=== PATIENT | female | born 1970 | race African-American/Black ===

== ENCOUNTER 2017-05-19 02:09 | Inpatient (IN) | payer SELFPAY ==
[~2017-05-19] VITALS: Ht 160 cm; Wt 89.2 kg
[2017-05-19] VITALS (26 sets, daily range): BP systolic 129–224; BP diastolic 72–134; PULSE 65–115; RESP 16–32; TEMP 97.9–98.6; O2SAT 94–99
[~2017-05-19 02:09] MED LIST: CHLO.12%30 SSP; CLIN1CAP5 PO; CLON-352 PO; CORE6.25 PO; FURO1TAB93 PO; LISI-360 PO; NAPR-576 PO; TRAM50 PO
[2017-05-19] MEDS ORDERED: CLON0.1T PO (02:36)
[2017-05-19] MEDS ORDERED: FURO40TA PO (02:36)
[2017-05-19] MEDS ORDERED: LISI10TA3 PO (02:36)
[2017-05-19] MEDS ORDERED: TRAM50TA PO (02:36)
[2017-05-19] MEDS ORDERED: CARV6.25 PO (02:36)
[2017-05-19] MEDS ORDERED: NITROGLYCERIN-D5W 50 MG/250 ML 250 ML IV ONE ×2 (02:45→06:15)
[2017-05-19] MEDS ORDERED: NITROGLYCERIN 0.4 MG SL 25 TABS/BTL SL ONE (02:45)
[2017-05-19 03:06] LABS: AUTOMATED NEUTROPHIL # 5.2 TH/MM3 (1.8-7.7); BASOPHIL # 0.1 TH/MM3 (0-0.2); BASOPHIL % 0.7 % (0.0-2.0); EOSINOPHIL # 0.2 TH/MM3 (0-0.4); HEMATOCRIT 39.8 % (35.0-46.0); HEMO FLAGS DIFF FINAL; LYMPH % 28.2 % (9.0-44.0); LYMPHOCYTE # 2.3 TH/MM3 (1.0-4.8); MEAN CELL VOLUME 87.8 FL (80.0-100.0); MEAN CORPUSCULAR HEMOGLOBIN 30.3 PG (27.0-34.0); MEAN CORPUSCULAR HGB CONC 34.5 % (32.0-36.0); MONO % 4.8 % (0.0-8.0); NEUT % 64.3 % (16.0-70.0); PLATELET COUNT 272 TH/MM3 (150-450); RED BLOOD COUNT 4.54 MIL/MM3 (4.00-5.30); RED CELL DISTRIBUTION WIDTH 14.5 % (11.6-17.2)
--- NOTE | 2017-05-19 03:07 | RADRPT ---
EXAM DATE/TIME: 05/19/2017 02:54 [facility] COMPARISON: No previous studies available for comparison. INDICATIONS : Short of breath. MEDICAL HISTORY : None. SURGICAL HISTORY : None. ENCOUNTER: Initial ACUITY: 1 day PAIN SCORE: 7/10 LOCATION: Bilateral chest FINDINGS: Perihilar and basilar parenchymal opacity may be edema. There is moderate enlargement of the cardiac silhouette. No significant effusion suspected. CONCLUSION: Cardiomegaly with fairly symmetric moderate probable edema. Tyler Kramer MD on May 19, 2017 at 3:02 Board Certified Radiologist. This report was verified electronically.
[2017-05-19 03:19] LABS: PROTHROMBIN TIME - PATIENT 10.4 SEC (9.8-11.6)
[2017-05-19 03:20] LABS: APTT (PATIENT) 23.2 SEC (24.3-30.1)
[2017-05-19 03:29] LABS: BICARBONATE 26.8 MEQ/L (21.0-32.0); MAGNESIUM 2.1 MG/DL (1.5-2.5)
[2017-05-19 03:31] LABS: POTASSIUM 4.7 MEQ/L (3.5-5.1)
[2017-05-19] MEDS ORDERED: IOHEXOL 350 MG/ML 10 ML VIAL (for RAD DIAG) IVCONTRAST ONE (04:26)
[2017-05-19] MEDS ORDERED: FUROSEMIDE 40 MG/4 ML VIAL IV PUSH ONE (04:30)
[2017-05-19] MEDS ORDERED: CARVEDILOL 6.25 MG TAB PO ONE (04:30)
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
--- NOTE | 2017-05-19 06:04 | RADRPT ---
EXAM DATE/TIME: 05/19/2017 04:12 [facility] COMPARISON: CHEST SINGLE AP, May 19, 2017, 2:54. INDICATIONS : Chest pain and shortness of breath. IV CONTRAST: 70 cc Omnipaque 350 (iohexol) IV RADIATION DOSE: 20.83 CTDIvol (mGy) MEDICAL HISTORY : Cardiovascular disease. Congestive heart failure. SURGICAL HISTORY : Tubal ligation. ENCOUNTER: Initial ACUITY: 1 day PAIN SCALE: 7/10 LOCATION: chest TECHNIQUE: Volumetric scanning of the chest was performed using a pulmonary embolism protocol MIP images were re constructed. Using automated exposure control and adjustment of the mA and/or kV according to patien t size, radiation dose was kept as low as reasonably achievable to obtain optimal diagnostic quality images. DICOM format image data is available electronically for review and comparison. Follow-up recommendations for detected pulmonary nodules are based at a minimum on nodule size and pa tient risk factors according to Fleischner Society Guidelines. FINDINGS: PULMONARY ARTERIES: No filling defects are seen in the pulmonary arteries through the segmental level. LUNGS: Diffuse symmetric primarily central alveolar infiltrates. PLEURAE: There is no pleural thickening or pleural effusion. MEDIASTINUM: Mild cardiac enlargement. There is good visualization of the great vessels of the middle mediastinum. No evidence of mediastinal or hilar adenopathy/mass. MUSCULOSKELETAL: Within normal limits for patient age. MISCELLANEOUS: The visualized upper abdominal organs demonstrate no acute abnormality. CONCLUSION: No evidence of pulmonary embolism Tyler Kramer MD on May 19, 2017 at 5:59 Board Certified Radiologist. This report was verified electronically.
[2017-05-19] MEDS ORDERED: RESP: ALBUTEROL 2.5 MG/IPRATROPIUM 0.5 MG NEB (PRN) NEB (06:15)
[2017-05-19] MEDS ORDERED: MAGNESIUM HYDROXIDE SUSP 30 ML CUP PO PRN (06:15)
[2017-05-19] MEDS ORDERED: ACETAMINOPHEN 325 MG TAB PO PRN (06:15)
[2017-05-19] MEDS ORDERED: ACETAMINOPHEN/HYDROcodone 325 MG/10 MG TAB PO PRN (06:15)
[2017-05-19] MEDS ORDERED: ONDANSETRON HCL 4 MG/2 ML VIAL IVP PRN (06:15)
[2017-05-19] MEDS ORDERED: LACTULOSE SYRUP 20 GM/30 ML CUP PO PRN (06:15)
[2017-05-19] MEDS ORDERED: SODIUM CHLORIDE 0.9% FLUSH 10 ML FLUSH IV FLUSH PRN (06:15)
[2017-05-19] MEDS ORDERED: SENNOSIDES 8.6 MG TAB PO PRN (06:15)
[2017-05-19] MEDS ORDERED: ACETAMINOPHEN/HYDROcodone 325 MG/5 MG TAB PO PRN (06:15)
[2017-05-19] MEDS ORDERED: BISACODYL 10 MG SUPP RECTAL PRN (06:15)
[2017-05-19] MEDS ORDERED: NIFEdipine 30 MG SUSTAINED RELEASE TAB PO SCH (09:00)
[2017-05-19] MEDS: FUROSEMIDE 40 MG/4 ML VIAL IV PUSH SCH ×3 (09:00→17:48)
[2017-05-19] MEDS ORDERED: METOPROLOL TARTRATE 25 MG TAB PO SCH (09:00)
[2017-05-19] MEDS ORDERED: cloNIDine HCL 0.1 MG TAB PO PRN (09:15)
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
[2017-05-19] MEDS ORDERED: NICOTINE 7 MG/24 HR PATCH T-DERMAL ONE (09:30)
[2017-05-19] MEDS: CARVEDILOL 12.5 MG TAB PO SCH ×2 (09:49→21:09)
[2017-05-19] MEDS: cloNIDine HCL 0.1 MG TAB PO SCH ×3 (09:49→17:51)
[2017-05-19] MEDS: DOCUSATE SODIUM 50 MG/SENNA 8.6 MG TAB PO SCH ×2 (09:49→21:00)
[2017-05-19] MEDS: hydrALAZINE HCL 50 MG TAB PO SCH ×2 (09:49→17:51)
[2017-05-19] MEDS: SODIUM CHLORIDE 0.9% FLUSH 10 ML FLUSH IV FLUSH SCH ×2 (09:50→21:10)
[2017-05-19] MEDS: HEPARIN SODIUM - SQ 10,000 UNITS/ML VIAL SQ SCH ×2 (09:50→21:09)
[2017-05-19] MEDS ORDERED: NITROGLYCERIN 400 MCG/SPRAY 4.9 GM BOTTLE SL PRN (12:15)
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
[2017-05-19] MEDS: FAMOTIDINE 20 MG TAB PO SCH ×2 (15:23→21:10)
--- NOTE | 2017-05-19 16:57 | EKG ---
Date Performed: 05/19/2017 Time Performed: 06:18:36 PTAGE: 47 years EKG: Sinus rhythm POSSIBLE LEFT ATRIAL ENLARGEMENT POSSIBLE LEFT VENTRICULAR HYPERTROPHY MODERATE T-WAVE ABNORMALITY, CONSIDER LATERAL ISCHEMIA ABNORMAL ECG PREVIOUS TRACING : 04/07/2012 13.18 Compared to prior tracing no significant change DOCTOR: Telma Kendall Interpretating Date/Time 05/19/2017 16:55:32
[2017-05-20] VITALS (11 sets, daily range): BP systolic 143–174; BP diastolic 99–118; PULSE 65–78; RESP 18; TEMP 97.3–98.2; O2SAT 97–98
[2017-05-20] MEDS: hydrALAZINE HCL 50 MG TAB PO SCH (01:09)
[2017-05-20 08:00] LABS: AUTOMATED NEUTROPHIL # 3.1 TH/MM3 (1.8-7.7); BASOPHIL # 0.1 TH/MM3 (0-0.2); BASOPHIL % 1.5 % (0.0-2.0); EOSINOPHIL # 0.2 TH/MM3 (0-0.4); EOSINOPHIL % 3.5 % (0.0-4.0); HEMATOCRIT 39.5 % (35.0-46.0); LYMPH % 36.2 % (9.0-44.0); LYMPHOCYTE # 2.2 TH/MM3 (1.0-4.8); MEAN CELL VOLUME 87.8 FL (80.0-100.0); MEAN CORPUSCULAR HEMOGLOBIN 29.5 PG (27.0-34.0); MEAN CORPUSCULAR HGB CONC 33.6 % (32.0-36.0); NEUT % 50.8 % (16.0-70.0); PLATELET COUNT 234 TH/MM3 (150-450); RED BLOOD COUNT 4.49 MIL/MM3 (4.00-5.30); RED CELL DISTRIBUTION WIDTH 14.6 % (11.6-17.2); WHITE BLOOD COUNT 6.1 TH/MM3 (4.0-11.0)
[2017-05-20 08:29] LABS: ALT (GPT) 58 U/L (10-53); ANION GAP 7 MEQ/L (5-15); AST (GOT) 40 U/L (15-37); BICARBONATE 27.1 MEQ/L (21.0-32.0); CHLORIDE 104 MEQ/L (98-107); GLOMERULAR FILTRATION RATE 63 ML/MIN (>89); HEMO FLAGS AUTO DIFF; MAGNESIUM 1.9 MG/DL (1.5-2.5); POTASSIUM 3.6 MEQ/L (3.5-5.1); SODIUM (NA) 138 MEQ/L (136-145)
[2017-05-20 08:43] LABS: ALKALINE PHOSPHATASE 82 U/L (45-117); BLOOD UREA NITROGEN 29 MG/DL (7-18); FREE T4 0.92 NG/DL (0.76-1.46); HDL CHOLESTEROL 68.9 MG/DL (40.0-60.0); LDL CHOLESTEROL 126 MG/DL (0-99); TOTAL BILIRUBIN ADULT 0.2 MG/DL (0.2-1.0)
[2017-05-20] MEDS ORDERED: NICOTINE 7 MG/24 HR PATCH T-DERMAL SCH (09:00)
[2017-05-20] MEDS ORDERED: REMOVE OLD PATCH T-DERMAL SCH (09:00)
[2017-05-20] MEDS ORDERED: NIFEdipine 60 MG SUSTAINED RELEASE TAB PO SCH (09:00)
[2017-05-20] MEDS: SODIUM CHLORIDE 0.9% FLUSH 10 ML FLUSH IV FLUSH SCH (09:00)
[2017-05-20] MEDS: FAMOTIDINE 20 MG TAB PO SCH (09:02)
[2017-05-20] MEDS: DOCUSATE SODIUM 50 MG/SENNA 8.6 MG TAB PO SCH (09:02)
[2017-05-20] MEDS: cloNIDine HCL 0.1 MG TAB PO SCH ×2 (09:02→13:00)
[2017-05-20] MEDS: CARVEDILOL 12.5 MG TAB PO SCH (09:02)
[2017-05-20] MEDS: FUROSEMIDE 40 MG/4 ML VIAL IV PUSH SCH (09:03)
[2017-05-20] MEDS: HEPARIN SODIUM - SQ 10,000 UNITS/ML VIAL SQ SCH (09:04)
[2017-05-20 09:35] LABS: PLATELET ESTIMATE SMEAR NORMAL (NORMAL); PLATELET MORPHOLOGY NORMAL (NORMAL); SCAN/DIFF AUTO DIFF CONFIRMED
--- NOTE | 2017-05-20 09:55 | HHI.PR ---
Subjective Remarks Patient is a 47-year-old female, WHO presented to the emergency department here at [facility] with history of congestive heart failure hypertension and malignant medical noncompliance presented with shortness of breath since yesterday morning. Has not been taking her blood pressure medications or any medications for past few days. Denies any chest pain fever cough or nausea or vomiting or abdominal pain does have bilateral lower extremity edema and sometimes takes her Lasix if she takes it does not have oxygen at home has not been very compliant with her medications. Was noted to have an elevated troponin. And severely uncontrolled blood pressure Troponin bumped. Consult cardiology 05-20 denies any chest pain. His back on her medications. Prescriptions will be written Discussed with cardiology Will need to take her medications Needs to stop doing cocaine Can be discharged later today if cleared by cardiology Objective Vitals Vital Signs Date Time Temp Pulse Resp B/P (MAP) Pulse Ox O2 Delivery O2 Flow Rate FiO2 05/20/17 08:54 97.3 78 18 174/118 (136) 98 168/99 (122) 05/20/17 06:00 66 05/20/17 04:00 98.2 74 18 174/107 (129) 97 154/99 (117) 05/20/17 03:00 78 05/19/17 23:20 98.6 76 20 135/96 (109) 97 05/19/17 20:00 98.4 65 20 135/96 (109) 97 05/19/17 18:15 83 05/19/17 17:00 84 05/19/17 16:19 129/74 (92) 05/19/17 16:00 84 05/19/17 15:14 160/102 (121) 05/19/17 15:00 67 05/19/17 15:00 72 16 157/109 (125) 98 05/19/17 14:00 84 05/19/17 13:00 86 05/19/17 12:00 80 16 133/72 (92) 98 05/19/17 12:00 80 05/19/17 11:00 82 05/19/17 10:00 84 I/O 05/19/17 05/19/17 05/19/17 05/20/17 05/20/17 05/20/17 07:00 15:00 23:00 07:00 15:00 23:00 Intake Total 720 ml 720 ml Balance 720 ml 720 ml Intake Oral 720 ml 720 ml # Voids 5 3 Result Diagram: 05/20/17 0729 05/20/17 0729 Other Results Laboratory Tests Test 05/19/17 02:45 05/19/17 10:45 05/19/17 17:21 05/20/17 07:29 White Blood Count 8.0 TH/MM3 6.1 TH/MM3 Red Blood Count 4.54 MIL/MM3 4.49 MIL/MM3 Hemoglobin 13.7 GM/DL 13.3 GM/DL Hematocrit 39.8 % 39.5 % Mean Corpuscular Volume 87.8 FL 87.8 FL Mean Corpuscular Hemoglobin 30.3 PG 29.5 PG Mean Corpuscular Hemoglobin Concent 34.5 % 33.6 % Red Cell Distribution Width 14.5 % 14.6 % Platelet Count 272 TH/MM3 234 TH/MM3 Mean Platelet Volume 9.6 FL 9.4 FL Neutrophils (%) (Auto) 64.3 % 50.8 % Lymphocytes (%) (Auto) 28.2 % 36.2 % Monocytes (%) (Auto) 4.8 % 8.0 % Eosinophils (%) (Auto) 2.0 % 3.5 % Basophils (%) (Auto) 0.7 % 1.5 % Neutrophils # (Auto) 5.2 TH/MM3 3.1 TH/MM3 Lymphocytes # (Auto) 2.3 TH/MM3 2.2 TH/MM3 Monocytes # (Auto) 0.4 TH/MM3 0.5 TH/MM3 Eosinophils # (Auto) 0.2 TH/MM3 0.2 TH/MM3 Basophils # (Auto) 0.1 TH/MM3 0.1 TH/MM3 CBC Comment DIFF FINAL AUTO DIFF Differential Comment AUTO DIFF CONFIRMED Prothrombin Time 10.4 SEC Prothromb Time International Ratio 1.0 RATIO Activated Partial Thromboplast Time 23.2 SEC Blood Urea Nitrogen 41 MG/DL 29 MG/DL Creatinine 1.24 MG/DL 1.12 MG/DL Random Glucose 105 MG/DL 80 MG/DL Calcium Level 9.4 MG/DL 9.1 MG/DL Magnesium Level 2.1 MG/DL 1.9 MG/DL Sodium Level 139 MEQ/L 138 MEQ/L Potassium Level 4.7 MEQ/L 3.6 MEQ/L Chloride Level 106 MEQ/L 104 MEQ/L Carbon Dioxide Level 26.8 MEQ/L 27.1 MEQ/L Anion Gap 6 MEQ/L 7 MEQ/L Estimat Glomerular Filtration Rate 56 ML/MIN 63 ML/MIN Total Creatine Kinase 237 U/L Creatine Kinase MB 3.0 NG/ML Creatine Kinase MB % 1.3 % Troponin I 0.15 NG/ML 1.70 NG/ML 0.83 NG/ML B-Type Natriuretic Peptide 185 PG/ML Platelet Estimate NORMAL Platelet Morphology Comment NORMAL Red Cell Morphology Comment NORMAL Total Protein 7.5 GM/DL Albumin 3.4 GM/DL Phosphorus Level 3.6 MG/DL Alkaline Phosphatase 82 U/L Aspartate Amino Transf (AST/SGOT) 40 U/L Alanine Aminotransferase (ALT/SGPT) 58 U/L Total Bilirubin 0.2 MG/DL Triglycerides Level 97 MG/DL Cholesterol Level 214 MG/DL LDL Cholesterol 126 MG/DL HDL Cholesterol 68.9 MG/DL Cholesterol/HDL Ratio 3.10 RATIO Free Thyroxine 0.92 NG/DL Thyroid Stimulating Hormone 3rd Gen 1.640 uIU/ML Imaging Last Impressions Chest X-Ray 05/19/17241 Signed Impressions: Service Date/Time: Friday, May 19, 2017 02:54 - CONCLUSION: Cardiomegaly with fairly symmetric moderate probable edema. yTler Kramer MD CT Angiography 05/19/17241 Signed Impressions: Service Date/Time: Friday, May 19, 2017 04:12 - CONCLUSION: No evidence of pulmonary embolism Tyler Kramer MD Objective Remarks GENERAL: Awake alert oriented talkative and cooperative appears stated age SKIN: Warm and dry. HEAD: Atraumatic. Normocephalic. EYES: Pupils equal and round. No scleral icterus. No injection or drainage. Extraocular muscles intact ENT: No nasal bleeding or discharge. Mucous membranes pink and moist. Tongue is midline NECK: Trachea midline. No JVD. Supple CARDIOVASCULAR: Regular rate and rhythm. S1 and S2 no S3 or S4 no heave or thrill or rub or gallop RESPIRATORY: No accessory muscle use. Clear to auscultation. Breath sounds equal bilaterally. GASTROINTESTINAL: Abdomen soft, non-tender, nondistended. Hepatic and splenic margins not palpable. MUSCULOSKELETAL: Extremities without clubbing, cyanosis, or edema. No obvious deformities. NEUROLOGICAL: Awake and alert. No obvious cranial nerve deficits. Motor grossly within normal limits. Five out of 5 muscle strength in the arms and legs. Normal speech. PSYCHIATRIC: Appropriate mood and affect; insight and judgment normal. Procedures None Medications and IVs Current Medications Nitroglycerin (Nitrostat Sl) 0.4 mg ONCE ONCE SL Last administered on 02:56; Start 05/19/17 at 02:45; Stop 05/19/17 at 02:46; Status DC Nitroglycerin/ Dextrose 250 ml @ 0 mls/hr TITRATE ONCE IV ; Start 05/19/17 at 02:45; Stop 05/19/17 at 02:46; Status DC Carvedilol (Coreg) 6.25 mg ONCE ONCE PO Last administered on 05/19/17 05:00 ; Start 05/19/17 at 04:30; Stop 05/19/17 at 04:31; Status DC Furosemide (Lasix Inj) 60 mg ONCE ONCE IV PUSH Last administered on 05:00; Start 05/19/17 at 04:30; Stop 05/19/17 at 04:31; Status DC Iohexol (Omnipaque 350 Inj) 70 ml STK-MED ONCE IVCONTRAST Last administered on 05/19/17 04:26; Start 05/19/17 at 04:26; Stop 05/19/17 at 04:27; Status DC Sodium Chloride (NS Flush) 2 ml UNSCH PRN IV FLUSH FLUSH AFTER USING IV ACCESS ; Start 05/19/17 at 06:15 Sodium Chloride (NS Flush) 2 ml BID IV FLUSH Last administered on 05/19/17 21 :10; Start 05/19/17 at 09:00 Ondansetron HCl (Zofran Inj) 4 mg Q6H PRN IVP NAUSEA OR VOMITING; Start at 06:15 Heparin Sodium (Porcine) (Heparin Inj) 5,000 units Q12H SQ Last administered on 05/20/17 09:04; Start 05/19/17 at 09:00 Acetaminophen (Tylenol) 650 mg Q6H PRN PO FEVER/PAIN SCALE 1 TO 2; Start 05/19 at 06:15 Acetaminophen/ Hydrocodone Bitart ([place] 5-325 Mg) 1 tab Q4H PRN PO PAIN SCALE 3 TO 5; Start 05/19/17 at 06:15 Acetaminophen/ Hydrocodone Bitart ([place] 10-325 Mg) 1 tab Q4H PRN PO PAIN SCALE 6 TO 10; Start 05/19/17 at 06:15 Senna/Docusate Sodium (Rena-Colace) 1 tab BID PO Last administered on 09:02; Start 05/19/17 at 09:00 Magnesium Hydroxide (Milk Of Magnesia Liq) 30 ml Q12H PRN PO Mild constipation ; Start 05/19/17 at 06:15 Sennosides (Senokot) 17.2 mg Q12H PRN PO Moderate constipation; Start at 06:15 Bisacodyl (Dulcolax Supp) 10 mg DAILY PRN RECTAL SEVERE CONSITIPATION/ IF NPO; Start 05/19/17 at 06:15 Lactulose (Lactulose Liq) 30 ml DAILY PRN PO SEVERE CONSITIPATION/ IF PO; Start 05/19/17 at 06:15 Furosemide (Lasix Inj) 40 mg BID@09,18 IV PUSH ; Start 05/19/17 at 09:00 Albuterol/ Ipratropium (Duoneb Neb) 1 ampule Q4HR NEB PRN NEB SOB/WHEEZING; Start 05/19/17 at 06:15 Clonidine (Catapres) 0.1 mg TID PO Last administered on 05/20/17 09:02; Start 05/19/17 at 09:00 Nifedipine (Procardia Xl) 30 mg DAILY PO Last administered on 05/19/17 09:49 ; Start 05/19/17 at 09:00; Stop 05/20/17 at 08:54; Status DC Metoprolol Tartrate (Lopressor) 25 mg Q12HR PO ; Start 05/19/17 at 09:00; Stop 05/19/17 at 09:25; Status DC Nitroglycerin/ Dextrose 250 ml @ 0 mls/hr TITRATE ONCE IV Last administered on 05/19/17 06:34; Start 05/19/17 at 06:15; Stop 05/19/17 at 06:20; Status DC Carvedilol (Coreg) 12.5 mg Q12HR PO Last administered on 05/20/17 09:02; Start 05/19/17 at 09:15 Hydralazine HCl (Apresoline) 50 mg Q8H PO Last administered on 05/20/17 01:09 ; Start 05/19/17 at 10:00; Stop 05/20/17 at 08:54; Status DC Clonidine (Catapres) 0.1 mg Q4H PRN PO SBP>160, DBP>90; Start 05/19/17 at 09: 15 Nicotine (Habitrol 7 Mg Patch.24 Hr) 1 patch ONCE ONCE T-DERMAL Last administered on 05/19/17 15:22; Start 05/19/17 at 09:30; Stop 05/19/17 at 09 :52; Status DC Nicotine (Habitrol 7 Mg Patch.24 Hr) 1 patch DAILY T-DERMAL Last administered on 05/20/17 09:07; Start 05/20/17 at 09:00 Miscellaneous Information 1 DAILY T-DERMAL Last administered on 05/20/17 09: 00; Start 05/20/17 at 09:00 Famotidine (Pepcid) 20 mg BID PO Last administered on 05/20/17 09:02; Start 05/19/17 at 09:30 Nitroglycerin (Nitrolingual Sl [place]) 1 spray Q5M PRN SL CHEST PAIN; Start at 12:15 Hydralazine HCl (Apresoline) 100 mg Q8H PO ; Start 05/20/17 at 10:00 Nifedipine (Procardia Xl) 60 mg DAILY PO ; Start 05/20/17 at 09:00 A/P Problem List: (1) NSTEMI (non-ST elevated myocardial infarction) ICD Code: I21.4 - Non-ST elevation (NSTEMI) myocardial infarction (2) Noncompliance ICD Code: Z91.19 - Patient's noncompliance with other medical treatment and regimen (3) Hypertension ICD Code: I10 - Essential (primary) hypertension (4) Tobacco abuse ICD Code: Z72.0 - Tobacco use (5) Pulmonary edema ICD Code: J81.1 - Chronic pulmonary edema Status: Acute (6) Renal insufficiency ICD Code: N28.9 - Disorder of kidney and ureter, unspecified Assessment and Plan Fluid overload with possible congestive heart failure. Malignant medical noncompliance Patient does not take any medications at home states she ran out. Does not know all the names of her medications. Was not sure about the name of her primary care physician needs Was found to have quite elevated malignant hypertension. We'll restart her medications and try and get that under control. Increase Coreg to 12.5 mg twice a day start hydralazine 50 mg 3 times a day continue on her Catapres 3 times a day and have when necessary Catapres also NSTEMI ECHO CONSULT CARDIO AM LABS Positive troponins. We'll trend these and consult cardiology. Echocardiogram. Smoking cessation recommended for the tobacco abuse we'll give a NicoDerm patch Restart hydralazine and clonidine and increase Coreg since patient's not been taking them medications adjusted up Continue on diuretics via IV switch to by mouth Trend troponins Hopefully home today GI and DVT prophylaxis Discharge Planning If cleared by cardiology Problem Qualifiers (1) Pulmonary edema: Qualified Codes: J81.0 - Acute pulmonary edema Shivam Bentley DO May 20, 2017 09:55
[2017-05-20] MEDS ORDERED: hydrALAZINE HCL 50 MG TAB PO SCH (10:00)
[2017-05-20] MEDS ORDERED: NICO1DIS8 T-DERMAL (10:02)
[2017-05-20] MEDS ORDERED: TRAM50TA PO (10:02)
[2017-05-20] MEDS ORDERED: CLON0.1T PO (10:02)
[2017-05-20] MEDS ORDERED: FURO40TA PO (10:02)
[2017-05-20] MEDS ORDERED: NIFE60TA8 PO (10:02)
[2017-05-20] MEDS ORDERED: PRAV40TA PO (10:02)
[2017-05-20] MEDS ORDERED: FAMO20TA2 PO (10:02)
[2017-05-20] MEDS ORDERED: ASPI1TAB57 PO (10:02)
[2017-05-20] MEDS ORDERED: POTA-163 PO (10:02)
[2017-05-20] MEDS ORDERED: HYDR-3800 PO (10:02)
[2017-05-20] MEDS ORDERED: NITR1SUB3 SL (10:02)
[2017-05-20] MEDS ORDERED: CARV12.5 PO (10:02)
--- NOTE | 2017-05-20 10:05 | HHI.DS ---
Discharge Summary Admission Date May 19, 2017 at 06:09 Discharge Date: May 20, 2017 Admitting Diagnosis Pulmonary edema (1) NSTEMI (non-ST elevated myocardial infarction) ICD Code: I21.4 - Non-ST elevation (NSTEMI) myocardial infarction Diagnosis: Principal (2) Noncompliance ICD Code: Z91.19 - Patient's noncompliance with other medical treatment and regimen Diagnosis: Principal (3) Hypertension ICD Code: I10 - Essential (primary) hypertension Diagnosis: Principal (4) Tobacco abuse ICD Code: Z72.0 - Tobacco use Diagnosis: Secondary (5) Pulmonary edema ICD Code: J81.1 - Chronic pulmonary edema Diagnosis: Principal Status: Acute (6) Renal insufficiency ICD Code: N28.9 - Disorder of kidney and ureter, unspecified Diagnosis: Principal Procedures None Brief History - From Admission Patient is a 47-year-old female, WHO presented to the emergency department here at [facility] with history of congestive heart failure hypertension and malignant medical noncompliance presented with shortness of breath since yesterday morning. Has not been taking her blood pressure medications or any medications for past few days. Denies any chest pain fever cough or nausea or vomiting or abdominal pain does have bilateral lower extremity edema and sometimes takes her Lasix if she takes it does not have oxygen at home has not been very compliant with her medications. Was noted to have an elevated troponin. And severely uncontrolled blood pressure Troponin bumped. Consult cardiology CBC/BMP: 05/20/17 0729 05/20/17 0729 Significant Findings Laboratory Tests Test 05/19/17 02:45 05/19/17 10:45 05/19/17 17:21 05/20/17 07:29 Activated Partial Thromboplast Time 23.2 SEC (24.3-30.1) Blood Urea Nitrogen 41 MG/DL (7-18) 29 MG/DL (7-18) Creatinine 1.24 MG/DL (0.50-1.00) 1.12 MG/DL (0.50-1.00) Estimat Glomerular Filtration Rate 56 ML/MIN (>89) 63 ML/MIN (>89) Total Creatine Kinase 237 U/L (26-192) Troponin I 0.15 NG/ML (0.02-0.05) 1.70 NG/ML (0.02-0.05) 0.83 NG/ML (0.02-0.05) B-Type Natriuretic Peptide 185 PG/ML (0-100) Aspartate Amino Transf (AST/SGOT) 40 U/L (15-37) Alanine Aminotransferase (ALT/SGPT) 58 U/L (10-53) Cholesterol Level 214 MG/DL (120-200) LDL Cholesterol 126 MG/DL (0-99) HDL Cholesterol 68.9 MG/DL (40.0-60.0) Imaging Last Impressions Chest X-Ray 05/19/17241 Signed Impressions: Service Date/Time: Friday, May 19, 2017 02:54 - CONCLUSION: Cardiomegaly with fairly symmetric moderate probable edema. Tyler Kramer MD CT Angiography 05/19/17241 Signed Impressions: Service Date/Time: Friday, May 19, 2017 04:12 - CONCLUSION: No evidence of pulmonary embolism Tyler Kramer MD PE at Discharge GENERAL: Awake alert oriented talkative and cooperative appears stated age SKIN: Warm and dry. HEAD: Atraumatic. Normocephalic. EYES: Pupils equal and round. No scleral icterus. No injection or drainage. Extraocular muscles intact ENT: No nasal bleeding or discharge. Mucous membranes pink and moist. Tongue is midline NECK: Trachea midline. No JVD. Supple CARDIOVASCULAR: Regular rate and rhythm. S1 and S2 no S3 or S4 no heave or thrill or rub or gallop RESPIRATORY: No accessory muscle use. Clear to auscultation. Breath sounds equal bilaterally. GASTROINTESTINAL: Abdomen soft, non-tender, nondistended. Hepatic and splenic margins not palpable. MUSCULOSKELETAL: Extremities without clubbing, cyanosis, or edema. No obvious deformities. NEUROLOGICAL: Awake and alert. No obvious cranial nerve deficits. Motor grossly within normal limits. Five out of 5 muscle strength in the arms and legs. Normal speech. PSYCHIATRIC: Appropriate mood and affect; insight and judgment normal. Hospital Course Patient is a 47-year-old female, WHO presented to the emergency department here at [facility] with history of congestive heart failure hypertension and malignant medical noncompliance presented with shortness of breath since yesterday morning. Has not been taking her blood pressure medications or any medications for past few days. Denies any chest pain fever cough or nausea or vomiting or abdominal pain does have bilateral lower extremity edema and sometimes takes her Lasix if she takes it does not have oxygen at home has not been very compliant with her medications. Was noted to have an elevated troponin. And severely uncontrolled blood pressure Troponin bumped. Consult cardiology 12- denies any chest pain. His back on her medications. Prescriptions will be written Discussed with cardiology Will need to take her medications Needs to stop doing cocaine Can be discharged later today if cleared by cardiology Pt Condition on Discharge: Fair Discharge Disposition: Discharge Home Discharge Time: > 30 minutes Discharge Instructions DIET: Follow Instructions for: Heart Healthy Diet, Diabetic Diet Speech Therapy-Diet Recommends: Regular Activities you can perform: Regular-No Restrictions Follow up Referrals: Cardiology - 2 Weeks with Jace Reyes MD PCP Follow-up - 1 Week New Medications: Aspirin DR (Aspirin 81) 81 Mg Tabdr 81 MG PO DAILY for Blood Clot Prevention for 30 Days, #30 TAB 0 Refills Nitroglycerin SL (Nitroglycerin SL) 0.4 Mg Subl 0.4 MG SL DIRECTED PRN for CHEST PAIN, #100 TAB.SL 0 Refills ONE TABLET UNDER THE TONGUE NEEDED FOR CHEST PAIN, MAY REPEAT EVERY FIVE MINUTES FOR A TOTAL OF 3 DOSES OR CALL 911 IF NO RELIEF Potassium Chloride ER (Potassium Chloride ER) 20 Meq Tab 20 MEQ PO DAILY for Electrolyte Replacement, #30 TAB 0 Refills Pravastatin (Pravachol) 40 Mg Tab 40 MG PO DAILY for Cholesterol Management, #30 TAB 0 Refills Carvedilol (Coreg) 12.5 Mg Tab 12.5 MG PO Q12HR for Blood Pressure Management, #60 TAB Famotidine (Famotidine) 20 Mg Tab 20 MG PO BID for Heartburn Management, #60 TAB Hydralazine HCl (Hydralazine HCl) 50 Mg Tablet 100 MG PO Q8H for Blood Pressure Management, #90 TAB Nicotine (Eq Nicotine Step 3) 7 Mg/24 Hour Dis 1 PATCH T-DERMAL DAILY for TOBACCO, #30 PATCH Nifedipine ER 24 HR (Nifedipine ER 24 HR) 60 Mg Tab 60 MG PO DAILY for Blood Pressure Management, #30 TAB Changed Medications: Furosemide (Furosemide) 40 Mg Tab 40 MG PO BID for FLUID OVERLOAD, #60 TAB 0 Refills (Changed from: DAILY; 30) Continued Medications: Clonidine (Clonidine) 0.1 Mg Tab 0.1 MG PO TID for Blood Pressure Management, #90 TAB 0 Refills (This prescription has been renewed) Tramadol (Tramadol) 50 Mg Tab 50 MG PO Q4H PRN for PAIN, #30 TAB 0 Refills (This prescription has been renewed ) Discontinued Medications: Carvedilol (Coreg) 6.25 Mg Tab 6.25 MG PO BID, #60 TAB 0 Refills Lisinopril (Lisinopril) 10 Mg Tab 10 MG PO DAILY, #30 TAB 0 Refills Shivam Bentley DO May 20, 2017 10:05
[2017-05-20] MEDS ORDERED: FUROSEMIDE 40 MG TAB PO SCH (10:15)
[2017-05-20 11:19] LABS: HEMOGLOBIN A1b 1.5 %; HEMOGLOBIN Ao 84.7 %; HEMOGLOBIN F 0.3 %; HEMOGLOBIN LA1C 2.2 %; HEMOGLOBIN P3 5.5 %
--- NOTE | 2017-05-20 17:44 | ECHRPT ---
Indication: HYPERTENSIVE HEART DISEASE CONCLUSIONS Normal left ventricular size. Moderate to severe concentric left ventricular hypertrophy. The left ventricular systolic function is low normal with an estimated ejection fraction in the rang e of 50- 55%. Mild aortic valve regurgitation. There is trace tricuspid valve regurgitation. There is a small pericardial effusion present. No hemodynamically significant echocardiographic features were observed (no pre-tamponade physiology). A small left sided pleural effusion is noted. BP: / HR: Rhythm: MEASUREMENTS (Male / Female) Normal Values Technical Quality:Good 2D ECHO LV Diastolic Diameter PLAX 4.4 cm 4.2 - 5.9 / 3.9 - 5.3 cm LV Systolic Diameter PLAX 3.3 cm IVS Diastolic Thickness 1.9 cm 0.6 - 1.0 / 0.6 - 0.9 cm LVPW Diastolic Thickness 1.9 cm 0.6 - 1.0 / 0.6 - 0.9 cm LV Relative Wall Thickness 0.9 LA Systolic Diameter LX 3.7 cm 3.0 - 4.0 / 2.7 - 3.8 cm DOPPLER AI Peak Velocity 316.0 cm/s AI Peak Gradient 39.9 mmHg AI Pressure Half Time 862.0 ms Mitral E Point Velocity 89.3 cm/s Mitral A Point Velocity 73.1 cm/s Mitral E to A Ratio 1.2 TR Peak Velocity 136.0 cm/s TR Peak Gradient 7.4 mmHg FINDINGS LEFT VENTRICLE Normal left ventricular size. Moderate to severe concentric left ventricular hypertrophy. The left ventricular systolic function is low normal with an estimated ejection fraction in the rang e of 50- 55%. RIGHT VENTRICLE Normal right ventricular size and systolic function. LEFT ATRIUM The left atrial size is normal. RIGHT ATRIUM The right atrial size is normal. ATRIAL SEPTUM Normal atrial septal thickness without atrial level shunting by limited color doppler interrogation. AORTA The aortic root and proximal ascending aorta are normal in size on limited imaging. MITRAL VALVE Structurally normal mitral valve. No mitral valve stenosis or regurgitation. AORTIC VALVE Mild aortic valve regurgitation. TRICUSPID VALVE There is trace tricuspid valve regurgitation. PULMONARY VALVE The pulmonary valve is not well visualized. VESSELS The inferior vena cava is normal in size. PERICARDIUM There is a small pericardial effusion present. No hemodynamically significant echocardiographic features were observed (no pre-tamponade physiology). A small left sided pleural effusion is noted. Telma Kendall MD, FACC (Electronically Signed) Final Date:20 May 2017 17:43
--- NOTE | 2017-05-22 17:36 | EKG ---
Date Performed: 05/19/2017 Time Performed: 08:29:36 PTAGE: 47 years EKG: Sinus rhythm . Left ventricular hypertrophy Lateral T wave changes are probably due to ventricular hypertrophy. Si nce previous tracing, no significant change noted Abnormal ECG PREVIOUS TRACING : 05/19/2017 06.18.36 DOCTOR: Lora Gutierrez Interpretating Date/Time 05/22/2017 17:34:44
== END 2017-05-20 15:45 | disposition home or self-care (01) | DRG 293 ==
LOC: NEPE 02:09 → NEDA 06:09 → HCIS 08:23
PROVIDERS: ADMIT Hospitalist; ATTEND Hospitalist
DX: I11.0 Hypertensive heart disease with heart failure (principal); E66.9 Obesity, unspecified; I50.33 Acute on chronic diastolic (congestive) heart failure; E78.00 Pure hypercholesterolemia, unspecified; N28.9 Disorder of kidney and ureter, unspecified; R74.8 Abnormal levels of other serum enzymes; F17.210 Nicotine dependence, cigarettes, uncomplicated; Z68.34 Body mass index [BMI] 34.0-34.9, adult; Z91.14 Patient's other noncompliance with medication regimen; Z91.19 Patient's noncompliance with other medical treatment and regimen
CPT/HCPCS: 71010; 71275; 80048; 80053; 80061; 82550; 82552; 83036; 83735; 83880; 84100; 84439; 84443; 84484; 84703; 85025; 85610; 85730; 93005; 93306; 96374; J1644; J1940; Q9967

== ENCOUNTER 2018-01-16 00:25 | Inpatient (IN) ==
[2018-01-16] MEDS ORDERED: Nitroglycerin Drip Premix 50 MG/250 ML BOTTLE IV.CONT PRN (00:33)
--- NOTE | 2018-01-16 01:07 | XR ---
EXAM DATE: 01/16/2018 1:01 AM EDT AGE/SEX: 47 years / Female INDICATIONS: Chest pain and shortness of breath. CLINICAL DATA: This is the patient's initial encounter. Patient reports that signs and symptoms have been present for 3 days and indicates a pain score of 4/10. MEDICAL/SURGICAL HISTORY: None. None. COMPARISON: [facility] [place]ST SINGLE AP, 05/19/2017. . FINDINGS: A single AP view of the chest demonstrates bilateral basilar intra-alveolar infiltrates most pronounc ed on the right. No effusions. Heart is mildly enlarged. Pulmonary vascular engorgement noted. Mild s coliotic curvature. CONCLUSION: Radiographic pattern most consistent with pulmonary edema. Electronically signed by: Lenin Vital MD 01/16/2018 1:06 AM EDT
--- NOTE | 2018-01-16 01:11 | ED ---
HPI General Chief complaint: Shortness of Breath/Dyspnea Stated complaint: Resp Time Seen by Provider: 01/16/18 00:33 Source: patient Limitations: no limitations History of Present Illness HPI narrative: The patient is a 47 year old female who presents to the [facility] emergency department with a history of progressive dyspnea on exertion and shortness of breath that became much worse this evening. The patient upon ambulance services arrival was noted to have O2 saturations on room air of 60%. Due to work of breathing she also had incontinence of urine according to ambulance services. The patient reportedly ran out of multiple blood pressure medications and Lasix a few days ago. The patient in route to this facility was started on CPAP after being given 1 nitroglycerin sublingual for extremely high blood pressure that was greater than 300 systolic according to ambulance services. The patient's O2 saturation improved. The patient's blood pressure came down to 190/113. The patient was given a DuoNeb x1. The patient was started on 90 mg of Lasix IV, 6 mg of morphine IV. The patient denies having any chest pain. She reports that her shortness of breath has improved since arriving in the emergency department. The patient arrives in the emergency department with a blood pressure of 261/148. The patient denies having any significant productive cough or congestion. She denies having any recent fevers. Review of systems otherwise is somewhat limited due to the patient's dyspnea and placement on BiPAP upon arrival. Related Data Home Medications Medication Instructions Recorded Confirmed carvedilol 6.25 mg PO DAILY 01/16/18 01/16/18 clonidine HCl 0.2 mg PO BID 01/16/18 01/16/18 furosemide 20 mg PO DAILY 01/16/18 01/16/18 losartan 100 mg PO DAILY 01/16/18 01/16/18 Allergies Allergy/AdvReac Type Severity Reaction Status Date / Time No Known Allergies Allergy Unverified 01/16/18 00:31 Review of Systems ROS Unobtainable ROS Unobtainable: other (Conversational dyspnea) ROS: all other systems reviewed are negative (Except for that which was mentioned in the HPI.) [facility] Medical History Medical History CHF (congestive heart failure) (Acute) Hypertension (Acute) Social History Social History Substance History: No History of Abuse Second Hand Smoke Exposure: No Smoking Status: Current every day smoker Tobacco Type: Cigarettes How Often Do You Have a Drink Containing Alcohol: Never Recent Travel in [facility] within the Last 8 Weeks: No Recent Out of Country Travel within the Last 8 Weeks: No Immunization History Tetanus Immunization: Unsure Hx Influenza Vaccine This Season: No Exam Const General: cooperative, well developed and acute distress moderate and respiratory Nutritional Appearance: well nourished Orientation: alert, awake and oriented x3 HENMT Head: normocephalic and atraumatic Nose: no nasal discharge and no epistaxis Mouth: moist mucous membranes Throat: posterior oropharynx normal and uvula midline Eyes Sclera: normal sclerae Pupils: PERRL Neck Neck: no meningeal signs and trachea midline Resp Effort & Inspection: no use of accessory muscles Auscultation: crackles (Audible in bilateral bases. No wheezes or rhonchi. The patient has tachypnea noted on arrival. No tripoding. No accessory muscle use. No paroxysmal abdominal breathing.) Cardio Rate: tachycardic (Sinus tachycardia in the 1 teens, no pulse deficits to the extremities on simultaneous auscultation and palpation of her radial artery.) Rhythm: regular rhythm Heart Sounds: no gallops, no murmurs and no rubs GI Inspection: non-distended Palpation: soft, no hepatosplenomegaly and nontender Auscultation: normal bowel sounds Back/Spine/Pelvis Back: no CVA tenderness Skin General: dry skin (warm) Neuro General: alert, awake and oriented x3 Cranial Nerves: other (No facial asymmetry.) Speech: speech normal Motor: no movement abnormalities noted Extrem General: normal to inspection (No calf tenderness on palpation. 2+ pulses in all 4 extremities.), no clubbing, no cyanosis and edema (1+ pedal edema bilateral lower extremities.) Laterality: bilaterally Psych Mood: congruent mood Affect: normal affect Judgment: judgment good Course Reevaluation(s) Reevaluation #1: The patient on reevaluation was resting comfortably, less work of breathing, continued on BiPAP. The patient was beginning to diuresis. Consultations Consultation #1: The patient's case including history, pertinent physical examination findings, and laboratory studies were discussed with Dr. Beltrán. It was agreed that the patient would be admitted to the hospitalist service. Initial Documented Vital Signs Pulse Oximetry 98 01/16/18 00:30 Last Documented Vital Signs Temperature 98.4 F 01/16/18 04:40 Pulse Rate 76 01/16/18 07:00 Respiratory Rate 20 01/16/18 04:40 Blood Pressure 172/100 H 01/16/18 06:00 Pulse Oximetry 94 L 01/16/18 05:23 Critical Care Time Critical Care Time: Yes Total Critical Care Time: 39 Attestation: Aggregate critical care time was 39 minutes. Time to perform other separately billable procedures was not included in the critical care time. My time did not include minutes spent treating any other patients simultaneously or on activities that did not directly contribute to the patient's treatment. The services I provided to this patient were to treat and/or prevent clinically significant deterioration that could result in: Respiratory failure from pulmonary edema, versus intracranial hemorrhage from hypertensive emergency, Versus acute coronary syndrome I provided critical care services requiring my management, as noted below: Chart data review, documentation time, medication orders and management, vital sign assessments/reviewing monitor data, ordering and reviewing lab tests, ordering and interpreting/reviewing x-rays and diagnostic studies, care of the patient and discussion of the patient with the admitting physicians. Medical Decision Making MDM Narrative Medical decision making narrative: During the course of the patient's emergency department visit, the patient's history, examination, and differential diagnosis were reviewed with the patient. The patient was placed on a media monitor with oximetry and frequent blood pressure monitoring. The patient had IV access obtained and blood work sent for analysis. A diagnostic evaluation was started regarding the patient's shortness of breath, hypertension. Due to my concern for the patient experiencing a hypertensive emergency with pulmonary edema, the patient was started on a nitroglycerin drip which was aggressively titrated to lower the patient's blood pressure by approximately 20%. The patient was initially provided A nitroglycerin drip. A Scott catheter was placed to gravity as the patient was given Lasix 90 mg IV by ambulance services prior to arrival. The patient was continued on noninvasive ventilation by respiratory therapy with BiPAP at 12/5, 45%. The patient was tolerating this well and will be weaned as tolerated. The patient's diagnostic studies are remarkable for a white count of 8.4, platelets 270, differential within normal limits, hemoglobin 13.6, PT 10.1, PTT 20.8, chemistry is remarkable for a troponin I of 0.24, GFR of 53, creatinine 1.31, chloride 108, BUN 28, AST 58, BNP is 151, urinalysis shows no acute abnormality, urine drug screen is negative, alcohol level is less than 3, chest x-ray shows radiographic pattern most consistent with pulmonary edema. The patient was given aspirin 324 mg p.o. 1. The patient's results were discussed with the patient, including the plan of care. I explained that further testing and/ or monitoring is indicated based on the patient's history, examination, and/ or laboratory findings. Therefore, I recommended admission for additional evaluation. The patient expressed understanding and was agreeable with this plan. The patient was admitted to the hospital in guarded condition and sent to a bed under the care of [facility] service. Medical Screen Exam Complete: Yes Emergency Medical Condition: Yes Differential Diagnosis Differential Diagnosis: Congestive heart failure, versus acute coronary syndrome , versus hypertensive emergency, versus pulmonary embolism Medical Records Medical records reviewed: Yes I reviewed the patient's medical records. POC Test Results POC Urine Results: Negative Lab Data Lab results reviewed: Yes I reviewed the patient's lab results. Result diagrams: 01/16/18 00:42 01/16/18 01:45 Lab Results 01/16/18 01/16/18 01/16/18 Range/Units 00:42 00:42 00:42 WBC 8.4 (4.0-11.0) th/mm3 RBC 4.41 (4.00-5.30) mil/mm3 Hgb 13.6 (11.6-15.3) gm/dL Hct 39.0 (35.0-46.0) % MCV 88.4 (80.0-100.0) fL MCH 30.7 (27.0-34.0) pg MCHC 34.8 (32.0-36.0) % RDW 16.2 (11.6-17.2) % Plt Count 270 (150-450) th/mm3 MPV 9.5 (7.0-11.0) fL Neut % (Auto) 60.4 (16.0-70.0) % Lymph % (Auto) 32.1 (9.0-44.0) % [place] % (Auto) 4.5 (0.0-8.0) % Eos % (Auto) 2.0 (0.0-4.0) % Baso % (Auto) 1.0 (0.0-2.0) % Neut # (Auto) 5.0 (1.8-7.7) th/mm3 Lymph # (Auto) 2.7 (1.0-4.8) th/mm3 [place] # (Auto) 0.4 (0.0-0.9) th/mm3 Eos # (Auto) 0.2 (0.0-0.4) th/mm3 Baso # (Auto) 0.1 (0.0-0.2) th/mm3 WBC Differential . Differential Comment Auto diff final PT 10.1 (9.8-11.6) sec INR 1.0 Ratio APTT 20.8 L (24.3-30.1) sec Sodium (136-145) meq/L Potassium (3.5-5.1) meq/L Chloride (98-107) meq/L Carbon Dioxide (21.0-32.0) meq/L Anion Gap (5-15) meq/L BUN (7-18) mg/dL Creatinine (0.50-1.00) mg/dL Estimated GFR (>89) mL/min Random Glucose (74-106) mg/dL Calcium (8.5-10.1) mg/dL Magnesium (1.5-2.5) mg/dL Total Bilirubin (0.2-1.0) mg/dL AST (15-37) U/L ALT (10-53) U/L Alkaline Phosphatase (45-117) U/L Total Creatine Kinase (26-192) U/L CK-MB (CK-2) (0.5-3.6) ng/mL Troponin I (0.02-0.05) ng/mL B-Natriuretic Peptide 151 H (0-100) pg/mL Total Protein (6.4-8.2) g/dL Albumin (3.4-5.0) g/dL Lipase (73-393) U/L Urine Color (Yellw/Straw) Urine Clarity (Clear) Urine pH (5.0-8.5) Ur Specific [place] (1.002-1.035) Urine Protein (Neg-Trace) mg/dL Urine Glucose (UA) (Negative) mg/dL Urine Ketones (Negative) mg/dL Urine Occult Blood (Negative) Urine Nitrate (Negative) Urine Bilirubin (Negative) Urine Urobilinogen (Less than 2) mg/dL Ur Leukocyte Esterase (Negative) Urine RBC (0-3) /hpf Urine WBC (0-5) /hpf Ur Squamous Epith Cells (0-5) /hpf Urine Bacteria (None) /hpf Micro UA Comment Urine Culture Comments Urine Opiates Screen (Neg) Ur Barbiturates Screen (Neg) Ur Amphetamines Screen (Neg) U Benzodiazepines Scrn (Neg) Urine Cocaine Screen (Neg) U Cannabinoids Screen (Neg) Serum Alcohol (0-5) mg/dL 01/16/18 01/16/18 01/16/18 Range/Units 00:49 00:49 01:45 WBC (4.0-11.0) th/mm3 RBC (4.00-5.30) mil/mm3 Hgb (11.6-15.3) gm/dL Hct (35.0-46.0) % MCV (80.0-100.0) fL MCH (27.0-34.0) pg MCHC (32.0-36.0) % RDW (11.6-17.2) % Plt Count (150-450) th/mm3 MPV (7.0-11.0) fL Neut % (Auto) (16.0-70.0) % Lymph % (Auto) (9.0-44.0) % [place] % (Auto) (0.0-8.0) % Eos % (Auto) (0.0-4.0) % Baso % (Auto) (0.0-2.0) % Neut # (Auto) (1.8-7.7) th/mm3 Lymph # (Auto) (1.0-4.8) th/mm3 [place] # (Auto) (0.0-0.9) th/mm3 Eos # (Auto) (0.0-0.4) th/mm3 Baso # (Auto) (0.0-0.2) th/mm3 WBC Differential Differential Comment PT (9.8-11.6) sec INR Ratio APTT (24.3-30.1) sec Sodium 143 (136-145) meq/L Potassium 3.6 (3.5-5.1) meq/L Chloride 108 H (98-107) meq/L Carbon Dioxide 28.0 (21.0-32.0) meq/L Anion Gap 7 (5-15) meq/L BUN 28 H (7-18) mg/dL Creatinine 1.31 H (0.50-1.00) mg/dL Estimated GFR 53 L (>89) mL/min Random Glucose 98 (74-106) mg/dL Calcium 8.6 (8.5-10.1) mg/dL Magnesium 1.9 (1.5-2.5) mg/dL Total Bilirubin 0.3 (0.2-1.0) mg/dL AST 58 H (15-37) U/L ALT 41 (10-53) U/L Alkaline Phosphatase 73 (45-117) U/L Total Creatine Kinase 149 (26-192) U/L CK-MB (CK-2) 3.5 (0.5-3.6) ng/mL Troponin I 0.24 H (0.02-0.05) ng/mL B-Natriuretic Peptide (0-100) pg/mL Total Protein 7.8 (6.4-8.2) g/dL Albumin 3.6 (3.4-5.0) g/dL Lipase 203 (73-393) U/L Urine Color Straw (Yellw/Straw) Urine Clarity Clear (Clear) Urine pH 7.0 (5.0-8.5) Ur Specific [place] 1.007 (1.002-1.035) Urine Protein 500 or greater (Neg-Trace) mg/dL Urine Glucose (UA) 50 (Negative) mg/dL Urine Ketones Negative (Negative) mg/dL Urine Occult Blood Negative (Negative) Urine Nitrate Negative (Negative) Urine Bilirubin Negative (Negative) Urine Urobilinogen Less than 2 (Less than 2) mg/dL Ur Leukocyte Esterase Negative (Negative) Urine RBC 1 (0-3) /hpf Urine WBC 2 (0-5) /hpf Ur Squamous Epith Cells 2 (0-5) /hpf Urine Bacteria Rare H (None) /hpf Micro UA Comment Culture not ind Urine Culture Comments Culture not ind Urine Opiates Screen Neg (Neg) Ur Barbiturates Screen Neg (Neg) Ur Amphetamines Screen Neg (Neg) U Benzodiazepines Scrn Neg (Neg) Urine Cocaine Screen Neg (Neg) U Cannabinoids Screen Neg (Neg) Serum Alcohol Less than 3 (0-5) mg/dL Imaging Data Radiologist's impression: Chest X-Ray 01/16/18 00:34 CONCLUSION: Radiographic pattern most consistent with pulmonary edema. ECG Data Attestation: I personally reviewed and interpreted this ECG as follows: Interpretation: The patient had an EKG done on arrival. The patient's EKG shows a sinus tachycardia rate of 111, QRS duration is 96 ms, QTC [address] segment elevation, nonspecific T wave abnormalities, T waves are noted to be inverted in aVL. Discharge Plan Discharge Disposition Patient Disposition: 30 Still Patient Discharge Details Diagnosis: Hypertensive emergency, Pulmonary edema, Elevated troponin Physicians Team ED Provider: Jory Reyes Primary Care Provider: Rosanne Mcgill Attending Provider: Lucia Velasquez Discharge Interventions Interventions: ED Discharge Assessment Last Done: 01/16/18 04:25 Vital Signs Last Done: 01/16/18 01:55 Status ED Status: Left Department Discharge Information Discharge Date/Time: 01/16/18 04:25
[2018-01-16 01:22] LABS: Amphetamine Screen,Urine Neg (Neg); Barbiturate Screen,Urine Neg (Neg); Cannabinoid Screen,Urine Neg (Neg); Cocaine Screen,Urine Neg (Neg)
[2018-01-16 01:25] LABS: Bacteria,Urine Rare /hpf; Bilirubin,Urine Negative (Negative); Clarity,Urine Clear (Clear); Color,Urine Straw (Yellw/Straw); Glucose,Urine (UA) 50 mg/dL (Negative); Leukocyte Esterase,Urine Negative (Negative); Nitrite,Urine Negative (Negative); Specific Gravity,Urine 1.007 (1.002-1.035); Squamous Epithelial Cell,Urine 2 /hpf (0-5)
[2018-01-16 01:27] LABS: Baso # (Auto) 0.1 th/mm3 (0.0-0.2); Eos # (Auto) 0.2 th/mm3 (0.0-0.4); Hemoglobin 13.6 gm/dL (11.6-15.3); Lymph # (Auto) 2.7 th/mm3 (1.0-4.8); Lymph % (Auto) 32.1 % (9.0-44.0); Mean Corpuscular HGB Conc 34.8 % (32.0-36.0); Mean Corpuscular Hemoglobin 30.7 pg (27.0-34.0); Mean Corpuscular Volume 88.4 fL (80.0-100.0); Mean Platelet Volume 9.5 fL (7.0-11.0); Mono # (Auto) 0.4 th/mm3 (0.0-0.9); Mono % (Auto) 4.5 % (0.0-8.0); Neut % (Auto) 60.4 % (16.0-70.0); Platelet Count 270 th/mm3 (150-450); Red Blood Count 4.41 mil/mm3 (4.00-5.30); Red Cell Distribution Width 16.2 % (11.6-17.2); White Blood Count 8.4 th/mm3 (4.0-11.0)
[2018-01-16 01:31] LABS: Opiate Screen,Urine Neg (Neg)
[2018-01-16 02:09] LABS: Activated Partial Thrombo Time 20.8 sec (24.3-30.1); Prothrombin Time 10.1 sec (9.8-11.6)
[2018-01-16 02:28] LABS: Alanine Aminotransferase 41 U/L (10-53); Albumin 3.6 g/dL (3.4-5.0); Anion Gap 7 meq/L (5-15); Aspartate Aminotransferase 58 U/L (15-37); Blood Urea Nitrogen 28 mg/dL (7-18); Calcium 8.6 mg/dL (8.5-10.1); Chloride 108 meq/L (98-107); Glomerular Filtration Rate 53 mL/min (>89); Glucose,Random 98 mg/dL (74-106); Lipase 203 U/L (73-393); Magnesium 1.9 mg/dL (1.5-2.5); Potassium 3.6 meq/L (3.5-5.1); Sodium 143 meq/L (136-145)
[2018-01-16 02:31] LABS: Alkaline Phosphatase 73 U/L (45-117); Creatine Kinase 149 U/L (26-192); Total Protein 7.8 g/dL (6.4-8.2); Troponin I 0.24 ng/mL (0.02-0.05)
[2018-01-16 02:47] LABS: Creatine Kinase MB 3.5 ng/mL (0.5-3.6)
[2018-01-16] MEDS ORDERED: Acetaminophen 325 MG Tablet PO PRN (03:33)
[2018-01-16] MEDS ORDERED: Bisacodyl 10 MG Supp RECTAL PRN (03:33)
[2018-01-16] MEDS: Senna/Docusate Sodium 8.6/50 MG Tablet PO SCH ×2 (09:18→22:39)
[2018-01-16] MEDS: Carvedilol 6.25 MG Tablet PO SCH (09:18)
--- NOTE | 2018-01-16 09:36 | P.HPIM ---
History of Present Illness Service: [facility] Primary Care Physician: Rosanne Mcgill Chief Complaint: Shortness of breath History of Present Illness: 47-year-old female with a medical history significant for hypertension who normally requires 4 antihypertensive agents brought to the hospital with complaint of worsening shortness of breath. Blood pressure on presentation was 261/148 . The patient reports she has been compliant with her blood pressure medications up until about a week ago. She reports she has been trying to get a refill from her PCP but was unable to do so because she could not be seen with recent lab work. She was supposed to follow-up with tomorrow. However she increasingly became short of breath to the point where she had to call the ambulance. She was placed on BiPAP and arrival and was given IV Lasix. She was put on a nitro drip to control her blood pressure. Patient reports she is currently feeling significantly better. She denies chest pain, no shortness of breath at rest. - Diagnosis (1) Hypertensive emergency (2) Pulmonary edema (3) Elevated troponin (4) CKD (chronic kidney disease) Inpatient Certification: I certify that the inpatient services were ordered in accordance with Medicare regulations governing the order. This includes certification that hospital inpatient services are reasonable and necessary and in the case of services not specified as inpatient-only under 42 CFR 419.22(n), that they are appropriately provided as inpatient services in accordance to with the 2-midnight benchmark under 43 CFR 412.3(e) Estimated Total Length of Stay (Days): 2 Plans for Post Hospital Care: Not yet determined Review of Systems All other systems reviewed negative except as stated in [facility] - History History Provided By: Patient, Medical Record - Medical History Medical History: Medical History (Last Updated 01/16/18 @ 17:52 by Lucia Velasquez MD) Hypertension - Surgical History Surgical History: Surgical History (Last Updated 01/16/18 @ 17:52 by Lucia Velasquez MD) No history of previous surgery - Family History Family History: Family History (Last Updated 01/16/18 @ 17:53 by Lucia Velasquez MD) Other Family history non-contributory - Tobacco History Second Hand Smoke Exposure: No Tobacco Use In Past 30 Days: Yes Smoking Status: Current every day smoker Tobacco Type: Cigarettes - Alcohol History How Often Do You Have a Drink Containing Alcohol: Never - Substance Use History Substance History: No History of Abuse - Travel History Recent Travel in the [place] Within the Last 8 Weeks: No Recent Travel Out of the Country Within the Last 8 Weeks: No - Immunization History Tetanus Immunization: Unsure Hx Influenza Vaccine This Season: No Medications and Allergies Active Medications: Active Medications Acetaminophen (Tylenol) 650 mg PO Q4H PRN PRN Reason: Temp > 100.4 Al Hydroxide/Mg Hydroxide (Milk Of Magnesia Liq) 30 ml PO Q12H PRN PRN Reason: Mild Constipation Bisacodyl (Dulcolax Supp) 10 mg RECTAL DAILY PRN PRN Reason: SEVERE CONSITIPATION Carvedilol (Coreg) 6.25 mg PO DAILY [facility] Last Admin: 01/16/18 09:18 Dose: 6.25 mg Clonidine HCl (Catapres) 0.2 mg PO BID [facility] Last Admin: 01/16/18 09:19 Dose: 0.2 mg Furosemide (Lasix Inj) 40 mg IV.PUSH BID@0900,1800 [facility] Last Admin: 01/16/18 09:17 Dose: 40 mg Nitroglycerin/Dextrose (Nitroglycerin Drip Premix) 50 mg in 250 mls @ 1.5 mls/ hr IV.CONT TITRATE PRN; Protocol PRN Reason: See Protocol Last Titration: 01/16/18 01:35 Dose: 30 mcg/min, 9 mls/hr Lactulose (Lactulose Liq) 30 ml PO DAILY PRN PRN Reason: SEVERE CONSITIPATION Losartan Potassium (Cozaar) 100 mg PO DAILY [facility] Last Admin: 01/16/18 09:19 Dose: 100 mg Ondansetron HCl (Zofran Inj) 4 mg IV.PUSH Q6H PRN PRN Reason: NAUSEA OR VOMITING Senna/Docusate Sodium (Rena-Colace) 1 tab PO BID [facility] Last Admin: 01/16/18 09:18 Dose: 1 tab Sennosides (Senokot) 17.2 mg PO Q12H PRN PRN Reason: Moderate Constipation Sodium Chloride (Ns Flush) 2 ml IV.FLUSH UNSCH PRN PRN Reason: FLUSH AFTER USING IV ACCESS Last Admin: 01/16/18 09:23 Dose: 2 ml Allergies Allergy/AdvReac Type Severity Reaction Status Date / Time No Known Allergies Allergy Unverified 01/16/18 00:31 Home Medications Medication Instructions Recorded Confirmed Type carvedilol 6.25 mg PO DAILY 01/16/18 01/16/18 History clonidine HCl 0.2 mg PO BID 01/16/18 01/16/18 History furosemide 20 mg PO DAILY 01/16/18 01/16/18 History losartan 100 mg PO DAILY 01/16/18 01/16/18 History Exam Vital signs: Vital Signs 01/16/18 00:30 01/16/18 00:43 01/16/18 00:58 Temperature 98 F Pulse Rate 102 H Respiratory Rate 26 H Blood Pressure 233/136 H Pulse Oximetry 98 94 L 95 01/16/18 00:59 01/16/18 01:11 01/16/18 01:20 Temperature Pulse Rate 110 H 118 H Respiratory Rate 22 Blood Pressure 201/117 H 210/112 H 169/99 H Pulse Oximetry 95 95 01/16/18 01:33 01/16/18 01:55 01/16/18 02:10 Temperature Pulse Rate 107 H Respiratory Rate 20 Blood Pressure 175/94 H 202/107 H Pulse Oximetry 93 L 99 01/16/18 03:50 01/16/18 04:10 01/16/18 04:40 Temperature 98.4 F Pulse Rate 89 91 H Respiratory Rate 20 20 Blood Pressure 182/107 H 172/111 H Pulse Oximetry 100 100 94 L 01/16/18 05:00 01/16/18 05:17 01/16/18 05:23 Temperature Pulse Rate 87 Respiratory Rate Blood Pressure 172/109 H Pulse Oximetry 94 L 01/16/18 06:00 01/16/18 07:00 Temperature Pulse Rate 84 76 Respiratory Rate Blood Pressure 172/100 H Pulse Oximetry Intake & Output 01/15/18 01/16/18 01/16/18 18:59 06:59 18:59 Intake Total 0 / 0 Output Total 100 / 100 Balance -100 / -100 Weight 113.3 kg Intake: Oral 0 / 0 Output: Urine 100 / 100 Other: # Voids 1 # Bowel Movements 0 Narrative: CONSTITUTIONAL/GENERAL: Obese female, no acute distress. SKIN: No jaundice, rashes, or concerning lesions. Not diaphoretic. HEAD: Atraumatic. Normocephalic. EYES: Pupils equal and round and reactive. Extra ocular motions are intact. No scleral icterus. No injection or drainage. ENT: Hearing grossly normal. Nose without drainage. Throat without visible erythema, exudates, masses, or lesions. NECK: Trachea midline. Neck is supple, non-tender. No palpable thyroid enlargement or nodularity. CARDIOVASCULAR: Normal rate and regular rhythm without murmurs, gallops, or rubs. No JVD. Peripheral pulses 2+ and symmetric. RESPIRATORY/CHEST: Symmetric, unlabored respirations. Breath sounds equal and clear to auscultation bilaterally. No wheezes, crackles, rales, or rhonchi. GASTROINTESTINAL: Abdomen soft, non-tender, non-distended. No hepato- splenomegaly, or palpable masses. No guarding. Bowel sounds present. MUSCULOSKELETAL: Extremities without clubbing, cyanosis, or edema. No joint tenderness or effusion noted. No calf tenderness. No mottling or clubbing. NEUROLOGICAL: Awake and alert. Motor and sensory grossly within normal limits. Follows commands. Move all extremities spontaneously. No focal deficits. PSYCHIATRIC: No obvious mood problems. No apparent hallucinations or other psychotic thought process. Results - Labs CBC & Chem 7: 01/16/18 00:42 01/16/18 01:45 Labs: Short CBC 01/16/18 Range/Units 00:42 WBC 8.4 (4.0-11.0) th/mm3 Hgb 13.6 (11.6-15.3) gm/dL Hct 39.0 (35.0-46.0) % Plt Count 270 (150-450) th/mm3 BMP 01/16/18 01:45 Sodium 143 Potassium 3.6 Chloride 108 H Carbon Dioxide 28.0 BUN 28 H Creatinine 1.31 H Calcium 8.6 Cardiac Enzymes 01/16/18 Range/Units 01:45 Total Creatine Kinase 149 (26-192) U/L CK-MB (CK-2) 3.5 (0.5-3.6) ng/mL Troponin I 0.24 H (0.02-0.05) ng/mL Liver Function 01/16/18 Range/Units 01:45 Total Bilirubin 0.3 (0.2-1.0) mg/dL AST 58 H (15-37) U/L ALT 41 (10-53) U/L Alkaline Phosphatase 73 (45-117) U/L Albumin 3.6 (3.4-5.0) g/dL Urine 01/16/18 Range/Units 00:49 Urine Color Straw (Yellw/Straw) Urine Clarity Clear (Clear) Urine pH 7.0 (5.0-8.5) Ur Specific [place] 1.007 (1.002-1.035) Urine Protein 500 or greater (Neg-Trace) mg/dL Urine Glucose (UA) 50 (Negative) mg/dL - Imaging Impressions Chest X-Ray 01/16/18 00:34 CONCLUSION: Radiographic pattern most consistent with pulmonary edema. Caprini VTE Risk Assessment Caprini VTE Risk Assessment: No/Low Risk (score <= 1) Caprini Risk Assessment Model: Point Value = 1 Point Value = 2 Point Value = 3 Point Value = 5 Age 41-60 Minor surgery BMI > 25 kg/m2 Swollen legs Varicose veins or History of unexplained or recurrent spontaneous Oral contraceptives or hormone replacement Sepsis (< 1 month) Serious lung disease, including pneumonia (< 1 month) Abnormal pulmonary function Acute myocardial infarction Congestive heart failure (< 1 month) History of inflammatory bowel disease Medical patient at bed rest Age 61-74 Arthroscopic surgery Major open surgery (> 45 min) Laparoscopic surgery (> 45 min) Malignancy Confined to bed (> 72 hours) Immobilizing plaster cast Central venous access Age >= 75 History of VTE Family history of VTE Factor V Leiden Prothrombin [id number] Lupus anticoagulant Anticardiolipin antibodies Elevated serum homocysteine Heparin-induced thrombocytopenia Other congenital or acquired thrombophilia Stroke (< 1 month) Elective arthroplasty Hip, pelvis, or leg fracture Acute spinal cord injury (< 1 month) Prophylaxis Regimen: Total Risk Factor Score Risk Level Prophylaxis Regimen 0-1 Low Early ambulation 2 Moderate Order ONE of the following: *Sequential Compression Device (SCD) *Heparin 5000 units SQ BID 3-4 Higher Order ONE of the following medications: *Heparin 5000 units SQ TID *Enoxaparin/Lovenox 40 mg SQ daily (WT < 150 kg, CrCl > 30 mL/min) *Enoxaparin/Lovenox 30 mg SQ daily (WT < 150 kg, CrCl > 10-29 mL/min) *Enoxaparin/Lovenox 30 mg SQ BID (WT < 150 kg, CrCl > 30 mL/min) AND/OR *Sequential Compression Device (SCD) 5 or more Highest Order ONE of the following medications: *Heparin 5000 units SQ TID (Preferred with Epidurals) *Enoxaparin/Lovenox 40 mg SQ daily (WT < 150 kg, CrCl > 30 mL/min) *Enoxaparin/Lovenox 30 mg SQ daily (WT < 150 kg, CrCl > 10-29 mL/min) *Enoxaparin/Lovenox 30 mg SQ BID (WT < 150 kg, CrCl > 30 mL/min) AND *Sequential Compression Device (SCD) Assessment and Plan - Assessment (1) Hypertensive emergency Code(s): I16.1 - Hypertensive emergency Status: Acute (2) Pulmonary edema Code(s): J81.1 - Chronic pulmonary edema Status: Acute (3) Elevated troponin Code(s): R74.8 - Abnormal levels of other serum enzymes Status: Acute (4) CKD (chronic kidney disease) Code(s): N18.9 - Chronic kidney disease, unspecified Status: Acute - Plan 47-year-old female admitted with hypertensive emergency, pulmonary edema due to uncontrolled hypertension. Patient ran out of her medications and was not able to get them time. Hypertensive emergency/pulmonary edema: -Currently on nitro drip. -Resume home dose antihypertensive including clonidine, carvedilol, Lasix, Cozaar. Wean off drip as tolerated -BNP elevated, will obtain a 2D echocardiogram to evaluate for heart failure given her long-standing hypertensive heart disease. Pulmonary edema: -Secondary to above. Supplemental oxygen as needed. Incentive spirometry. Expect improvement with better blood pressure control. Elevated troponin: Mild and consistent with prior. Likely secondary to strain from hypertensive emergency. Chronic kidney disease: Stable. Continue to monitor. GI prophylaxis: Stool softener PRN constipation. DVT PPx: SCDs H&P: Quality - VTE Deep Vein Thrombosis/Pulmonary Embolism Present on Admission: No (2) Pulmonary edema Qualifiers: Chronicity: acute Qualified Code(s): J81.0 - Acute pulmonary edema
[2018-01-16 11:57] LABS: Troponin I 0.44 ng/mL (0.02-0.05)
[2018-01-16 15:49] LABS: Troponin I 0.32 ng/mL (0.02-0.05)
--- NOTE | 2018-01-16 21:30 | ECG ---
Date Performed: 01/16/2018 Time Performed: 08:16:18 PTAGE: 47 years EKG: Sinus rhythm Prolonged QT interval Possible left atrial abnormality Left ventricular hypertrophy Lateral T wave c hanges are probably due to ventricular hypertrophy Abnormal ECG Compared to PREVIOUS TRACING , rate has decreased DOCTOR: Stephen Tabor Interpretating Date/Time 01/16/2018 21:28:23
--- NOTE | 2018-01-16 21:42 | ECG ---
Date Performed: 01/16/2018 Time Performed: 00:34:50 PTAGE: 47 years EKG: SINUS TACHYCARDIA POSSIBLE LEFT ATRIAL ENLARGEMENT POSSIBLE LEFT VENTRICULAR HYPERTROPHY NO NSPECIFIC T-WAVE ABNORMALITY ABNORMAL ECG Compared to PREVIOUS TRACING , rate has increased DOCTOR: Stephen Tabor Interpretating Date/Time 01/16/2018 21:40:51
[2018-01-17 06:05] LABS: Baso # (Auto) 0.1 th/mm3 (0.0-0.2); Baso % (Auto) 0.9 % (0.0-2.0); Eos # (Auto) 0.1 th/mm3 (0.0-0.4); Eos % (Auto) 2.3 % (0.0-4.0); Hematocrit 41.7 % (35.0-46.0); Hemoglobin 13.6 gm/dL (11.6-15.3); Lymph # (Auto) 1.9 th/mm3 (1.0-4.8); Lymph % (Auto) 31.1 % (9.0-44.0); Mean Corpuscular HGB Conc 32.6 % (32.0-36.0); Mean Corpuscular Hemoglobin 29.3 pg (27.0-34.0); Mean Corpuscular Volume 89.9 fL (80.0-100.0); Mean Platelet Volume 8.8 fL (7.0-11.0); Mono # (Auto) 0.6 th/mm3 (0.0-0.9); Mono % (Auto) 9.8 % (0.0-8.0); Neut # (Auto) 3.4 th/mm3 (1.8-7.7); Neut % (Auto) 55.9 % (16.0-70.0); Platelet Count 258 th/mm3 (150-450); Red Blood Count 4.64 mil/mm3 (4.00-5.30); Red Cell Distribution Width 16.3 % (11.6-17.2); White Blood Count 6.2 th/mm3 (4.0-11.0)
[2018-01-17 06:30] LABS: Calcium 9.6 mg/dL (8.5-10.1); Carbon Dioxide 29.7 meq/L (21.0-32.0); Potassium 3.4 meq/L (3.5-5.1)
[2018-01-17] MEDS: Senna/Docusate Sodium 8.6/50 MG Tablet PO SCH (08:56)
[2018-01-17] MEDS: Carvedilol 6.25 MG Tablet PO SCH (08:57)
--- NOTE | 2018-01-17 11:55 | ECHRPT ---
Indication: HYPERTENSIVE HEART DISEASE CONCLUSIONS The left ventricular systolic function is dozszcow-su-krugwpt reduced with an estimated ejection fra ction in the range of 35-40%. Normal left ventricular size. Moderate concentric left ventricular hypertrophy. No regional wall motion abnormalities are present. Aortic valve sclerosis is present. Trace aortic valve regurgitation. The pulmonary valve is not well visualized. There is a trace-small pericardial effusion present. No hemodynamically significant echocardiographic features were observed (no pre-tamponade physiology). BP: / HR: Rhythm: Sinus MEASUREMENTS (Male / Female) Normal Values Technical Quality:Good 2D ECHO LV Diastolic Diameter PLAX 5.0 cm 4.2 - 5.9 / 3.9 - 5.3 cm LV Systolic Diameter PLAX 4.3 cm IVS Diastolic Thickness 1.5 cm 0.6 - 1.0 / 0.6 - 0.9 cm LVPW Diastolic Thickness 1.5 cm 0.6 - 1.0 / 0.6 - 0.9 cm LV Relative Wall Thickness 0.6 RV Internal Dim ED PLAX 2.1 cm LVOT Diameter 2.0 cm LV Ejection Fraction MOD 4C 36.4 % LV Ejection Fraction 4C AL 37.3 % M-MODE Aortic Root Diameter MM 2.8 cm LA Systolic Diameter MM 3.6 cm LA Ao Ratio MM 1.3 AV Cusp Separation MM 1.6 cm DOPPLER AV Peak Velocity 82.8 cm/s AV Peak Gradient 2.7 mmHg AI Peak Velocity 211.0 cm/s AI Peak Gradient 17.8 mmHg AI Pressure Half Time 1362.5 ms LVOT Peak Velocity 64.7 cm/s LVOT Peak Gradient 1.7 mmHg AV Area Cont Eq pk 2.5 cm MV Area PHT 3.9 cm Mitral E Point Velocity 49.9 cm/s Mitral A Point Velocity 78.0 cm/s Mitral E to A Ratio 0.6 LV E' Lateral Velocity 2.8 cm/s Mitral E to LV E' Lateral Ratio 17.6 LV E' Septal Velocity 4.0 cm/s Mitral E to LV E' Septal Ratio 12.5 PV Peak Velocity 105.0 cm/s PV Peak Gradient 4.4 mmHg FINDINGS LEFT VENTRICLE The left ventricular systolic function is jxwdivnn-yx-obivfjq reduced with an estimated ejection fra ction in the range of 35-40%. Normal left ventricular size. Moderate concentric left ventricular hypertrophy. No regional wall motion abnormalities are present. RIGHT VENTRICLE Normal right ventricular size and systolic function. LEFT ATRIUM The left atrial size is normal. RIGHT ATRIUM The right atrial size is normal. ATRIAL SEPTUM Normal atrial septal thickness without atrial level shunting by limited color doppler interrogation. AORTA The aortic root and proximal ascending aorta are normal in size on limited imaging. MITRAL VALVE Structurally normal mitral valve. No mitral valve stenosis or regurgitation. AORTIC VALVE Trileaflet aortic valve. Aortic valve sclerosis is present. Trace aortic valve regurgitation. TRICUSPID VALVE Structurally normal tricuspid valve. No tricuspid valve stenosis or regurgitation. PULMONARY VALVE The pulmonary valve is not well visualized. VESSELS The inferior vena cava is normal in size. PERICARDIUM There is a trace-small pericardial effusion present. No hemodynamically significant echocardiographic features were observed (no pre-tamponade physiology). Baltazar Franco MD, FACC (Electronically Signed) Final Date:17 January 2018 11:53
--- NOTE | 2018-01-17 14:09 | P.PNIM ---
Subjective Interval history: Patient reports she is feeling significantly better. No more shortness of breath. Ambulating well. Blood pressure much better controlled. We discussed the need to be compliant with medications. We discussed findings of echocardiogram which shows LVEF of 35-40%. Physical Exam Vital signs: Vital Signs 01/16/18 15:00 01/16/18 16:00 01/16/18 17:00 Temperature 97.8 F Pulse Rate 66 68 75 Respiratory Rate 16 Blood Pressure 145/86 H Pulse Oximetry 97 01/16/18 18:00 01/16/18 19:00 01/16/18 20:00 Temperature 98.1 F Pulse Rate 74 86 74 Respiratory Rate 18 Blood Pressure 182/113 H Pulse Oximetry 96 96 01/16/18 21:00 01/16/18 22:00 01/16/18 23:00 Temperature Pulse Rate 74 88 76 Respiratory Rate Blood Pressure Pulse Oximetry 96 01/17/18 00:00 01/17/18 01:00 01/17/18 02:00 Temperature Pulse Rate 64 70 86 Respiratory Rate 16 Blood Pressure 146/93 H Pulse Oximetry 95 01/17/18 03:00 01/17/18 04:00 01/17/18 05:00 Temperature Pulse Rate 76 78 78 Respiratory Rate 16 Blood Pressure 159/100 H Pulse Oximetry 96 97 01/17/18 06:00 01/17/18 07:00 01/17/18 07:43 Temperature 97.9 F Pulse Rate 80 78 68 Respiratory Rate 22 Blood Pressure 175/106 H Pulse Oximetry 95 968 H 01/17/18 08:00 01/17/18 09:00 01/17/18 10:00 Temperature Pulse Rate 76 84 70 Respiratory Rate Blood Pressure Pulse Oximetry 01/17/18 11:00 01/17/18 11:40 01/17/18 12:00 Temperature 98.2 F Pulse Rate 78 78 70 Respiratory Rate 18 Blood Pressure 122/87 Pulse Oximetry 95 01/17/18 13:00 Temperature Pulse Rate 76 Respiratory Rate Blood Pressure Pulse Oximetry Intake & Output 01/16/18 01/17/18 01/17/18 18:59 06:59 18:59 Intake Total 1330 / 1330 1140 / 1140 Output Total 880 / 880 1400 / 1400 Balance 450 / 450 -260 / -260 Weight 113.9 kg Intake: IV 250 / 250 Nitroglycerin Drip Premix 50 mg 250 / 250 In 250 ml @ 5 MCG/MIN 1.5 mls/ hr IV.CONT TITRATE PRN Rx#: [id number] Oral 1080 / 1080 1140 / 1140 Output: Urine 880 / 880 1400 / 1400 Other: Date of Last Bowel Movement 01/17/18 Narrative: GENERAL: Obese female in no apparent distress. CARDIOVASCULAR: Normal rate and regular rhythm without murmurs, gallops, or rubs. RESPIRATORY: Good respiratory efforts. Breath sounds equal and clear to auscultation bilaterally. GASTROINTESTINAL: Abdomen soft, non-tender, non-distended. Normal active bowel sounds MUSCULOSKELETAL: Extremities without cyanosis, or edema. NEURO: Alert & Oriented x4 to person, place, time, situation. Moves all ext x4 PSYCH: Appropriate mood and affect. Results - Labs CBC & Chem 7: 01/17/18 05:51 01/17/18 05:51 Laboratory Results - last 24 hr 01/16/18 01/17/18 01/17/18 14:47 05:51 05:51 WBC 6.2 RBC 4.64 Hgb 13.6 Hct 41.7 MCV 89.9 MCH 29.3 MCHC 32.6 RDW 16.3 Plt Count 258 MPV 8.8 Neut % (Auto) 55.9 Lymph % (Auto) 31.1 [place] % (Auto) 9.8 H Eos % (Auto) 2.3 Baso % (Auto) 0.9 Neut # (Auto) 3.4 Lymph # (Auto) 1.9 [place] # (Auto) 0.6 Eos # (Auto) 0.1 Baso # (Auto) 0.1 WBC Differential . Differential Comment Auto diff final Sodium 139 Potassium 3.4 L Chloride 100 D Carbon Dioxide 29.7 Anion Gap 9 BUN 26 H Creatinine 1.18 H Estimated GFR 60 L Random Glucose 76 Calcium 9.6 D Total Creatine Kinase 132 Troponin I 0.32 H D Assessment and Plan - Assessment (1) Hypertensive emergency Code(s): I16.1 - Hypertensive emergency Status: Acute (2) Pulmonary edema Code(s): J81.1 - Chronic pulmonary edema Status: Acute (3) Elevated troponin Code(s): R74.8 - Abnormal levels of other serum enzymes Status: Acute (4) CKD (chronic kidney disease) Code(s): N18.9 - Chronic kidney disease, unspecified Status: Acute - Plan 47-year-old female admitted with hypertensive emergency, pulmonary edema due to uncontrolled hypertension. Patient ran out of her medications and was not able to get them time. Hypertensive emergency/pulmonary edema: -Status post nitro drip. -Resume home dose antihypertensive including clonidine, carvedilol, Lasix, Cozaar. Drip was weaned off. -BNP elevated, a 2D echocardiogram revealed LVEF of 35-40% likely secondary to hypertensive heart disease. -Patient was given refill of her medications and advised to follow-up with PCP. She understands the need to obtain medications prior to running out. Acute systolic CHF: - Exacerbated by accelerated hypertension. - Home medication resumed. Patient to continue on Lasix, carvedilol, and Cozaar. She was counseled at length on the need to restrict fluid and follow a heart failure diet. Pulmonary edema: -Secondary to above. Quickly improved with better control of blood pressure. Elevated troponin: Mild and consistent with prior. Likely secondary to strain from hypertensive emergency. Chronic kidney disease: Stable. Discharge Planning: The patient improved significantly in a short amount of time Discharge patient to home Condition on discharge: Improved Heart healthy diet Ad [place] activity Rx written: Per med rec Follow-up with primary care physician (2) Pulmonary edema Qualifiers: Chronicity: acute Qualified Code(s): J81.0 - Acute pulmonary edema
--- NOTE | 2018-01-17 15:51 | ECG ---
Date Performed: 01/16/2018 Time Performed: 14:09:00 PTAGE: 47 years EKG: Sinus rhythm Prolonged QT interval Left ventricular hypertrophy Lateral T wave changes may be due to hypertrophy and/or ischemia Since the previous tracing, no significant change noted Abnormal ECG PREVIOUS TRACING : 01/16/18 @ 0816 DOCTOR: Misbah Lynch Interpretating Date/Time 01/17/2018 15:49:40
== END 2018-01-17 14:59 | disposition home or self-care (01) ==
LOC: NEPE 00:25 → NEDA 03:19 → HCIS 04:32
PROVIDERS: ADMIT Family Medicine; ATTEND Family Medicine